=== PATIENT | female | born 1960 | race Caucasian/White ===

== ENCOUNTER 2024-02-27 18:09 | Emergency (ER) | payer SELFPAY ==
[2024-02-27] MEDS: Sodium Chloride 0.9% 1,000 ML IV ONE (18:57)
[2024-02-27 18:58] LABS: BASOPHILS PERCENT AUTO 0.2 % (0.0-1.0); EOSINOPHILS ABSOLUTE AUTO 0.2 K/mm3 (0.0-0.4); EOSINOPHILS PERCENT AUTO 0.9 % (0.0-6.0); HEMATOCRIT 27.6 % (37.0-47.0); HEMOGLOBIN 8.7 gm/dl (12.0-16.0); IMMATURE GRAN ABSOLUTE AUTO 0.14 K/mm3 (0.00-0.05); IMMATURE GRAN PERCENT AUTO 0.9 % (0.0-0.4); LYMPHOCYTES ABSOLUTE AUTO 1.3 K/mm3 (1.0-4.8); MEAN CORPUSCULAR HEMOGLOBIN 27.3 pg (28.0-32.0); MEAN CORPUSCULAR HGB CONC 31.5 g/dl (32.0-36.0); MEAN CORPUSCULAR VOLUME 86.5 fl (83.0-99.0); MEAN PLATELET VOLUME 8.2 fl (9.4-12.3); MONOCYTES ABSOLUTE AUTO 0.9 K/mm3 (0.0-0.8); MONOCYTES PERCENT AUTO 5.6 % (0.0-8.0); NEUTROPHILS ABSOLUTE AUTO 13.8 K/mm3 (1.8-7.7); NEUTROPHILS PERCENT AUTO 84.4 % (41.0-71.0); PLATELET COUNT,PLT 754 K/mm3 (150-400); RED BLOOD CELL COUNT 3.19 M/mm3 (4.10-5.30); WHITE BLOOD CELL COUNT,WBC 16.31 K/mm3 (3.9-11.3)
[2024-02-27] MEDS: Metoclopramide 10 MG/2 ML SDV IVPUSH ONE (18:58)
[2024-02-27 19:23] LABS: A/G RATIO 0.4 (1-2); ALANINE AMINOTRANSFERASE,ALT 17 U/L (14-59); ALKALINE PHOSPHATASE 253 U/L (46-116); ASPARTATE AMNIOTRANSFERASE,AST 16 U/L (15-37); BILIRUBIN TOTAL 0.3 mg/dL (0.2-1.0); BLOOD UREA NITROGEN,BUN 14 mg/dL (7-18); BUN/CREATININE RATIO 15.6 (14-18); CARBON DIOXIDE,CO2 29 mEq/L (21-32); CHLORIDE,CL 93 mEq/L (98-107); CREATININE 0.9 mg/dL (0.55-1.02); ESTIMATED GFR 73 mL/min (>60); GLUCOSE RANDOM 110 mg/dL (70-99); LIPASE 19 U/L (16-77); PROTEIN TOTAL,TP 6.9 g/dl (6.4-8.2); SODIUM,NA 133 mEq/L (136-145)
[2024-02-27 20:19] LABS: C-REACTIVE PROTEIN > 25.00 mg/dL (<0.30)
[2024-02-27] MEDS: Iopamidol 612 MG/ML 100 ML Bottle IVPUSH ONE (20:31)
[2024-02-27] MEDS: Sodium Chloride 0.9% 10 ML Syringe FLUSH ONE (20:31)
[2024-02-27] MEDS: Potassium Chloride 20 MEQ Tab.ER PO ONE (21:35)
[2024-02-27] MEDS: Ketorolac 30 MG/ML SDV IVPUSH ONE (21:43)
[2024-02-28] MEDS: VANCOmycin 1.25 GM/250 ML 1.25 GM in Premix Bag 1 BAG IV ONE (00:47)
[2024-02-28] MEDS: metroNIDAZOLE/Normal Saline 500 MG in Premix Bag 1 BAG IV ONE (00:47)
[2024-02-28] MEDS: Ondansetron 4 MG/2 ML SDV IVPUSH ONE (03:39)
[2024-02-28] MEDS: cefTRIAXone 500 MG Vial IVPUSH ONE (04:42)
[2024-02-28] MEDS: cefTRIAXone 1 GM Vial ONE (04:43)
[2024-02-28] MEDS: cefTRIAXone 1 GM in Sodium Chloride 0.9% 50 ML IV ONE (04:46)
[2024-02-28] MEDS ORDERED: VANCOmycin 0.75 GM in Sodium Chloride 0.9% 250 ML IV SCH (13:00)
[2024-02-28] MEDS: Ondansetron 4 MG Tab.DIS PO ONE (13:12)
[2024-02-28] MEDS: Acetaminophen/HYDROcodone 325-5 MG Tab PO ONE (13:12)
[2024-02-28] MEDS ORDERED: VANCOmycin 1.25 GM/250 ML 1.25 GM in Premix Bag 1 BAG IV SCH (19:00)
== END 2024-02-28 13:15 ==
LOC: JD.ED 18:09
DX: L02.415 Cutaneous abscess of right lower limb (principal)
CPT/HCPCS: 36415; 74177; 74177-26; 80053; 83690; 85025; 86140; 87428-QW; 96361; 96365; 96366; 96368; 96375; 96376; 99284-25; A9270-GY; J0696; J1836; J1885; J2405; J2765; J3372; J7030; Q9967